=== PATIENT | female | born 1965 | race African-American/Black ===

== ENCOUNTER 2019-05-01 10:38 | Emergency (ER) | payer MEDICARE ==
[2019-05-01 10:41] VITALS: Wt 75.0 kg
[2019-05-01] MEDS ORDERED: LITHIUM CARBON300 MG PO (10:43)
[2019-05-01] MEDS ORDERED: PROZAC20 MG PO (10:43)
[2019-05-01] MEDS ORDERED: OMEPRAZOLE40 MG PO (10:43)
[2019-05-01] MEDS ORDERED: MOBIC7.5 MG PO (10:43)
[2019-05-01] MEDS ORDERED: NAPROSYN500 MG PO (10:44)
[2019-05-01] MEDS ORDERED: GEODON40 MG PO (10:44)
[2019-05-01] MEDS ORDERED: K-DUR20 MEQ PO (10:44)
[2019-05-01] MEDS ORDERED: SEROQUEL XR300 MG PO (10:45)
[2019-05-01] MEDS ORDERED: TRAZODONE HCL150 MG PO (10:45)
[2019-05-01 10:54] LABS: APPEARANCE CLEAR (CLEAR); BILIRUBIN NEGATIVE (NEGATIVE); COLOR STRAW (YELLOW); GLUCOSE NEGATIVE (NEGATIVE); KETONE NEGATIVE (NEGATIVE); NITRITE NEGATIVE (NEGATIVE); PROTEIN NEGATIVE (NEGATIVE); SPECIFIC GRAVITY 1.005 (1.005-1.020); UROBILINOGEN NORMAL (NORMAL)
[2019-05-01 10:56] LABS: HCG URINE NEGATIVE (NEGATIVE)
[2019-05-01 10:58] LABS: UDS - AMPHET NEGATIVE QUAL (NEGATIVE); UDS - BARB NEGATIVE QUAL (NEGATIVE); UDS - BENZO NEGATIVE QUAL (NEGATIVE); UDS - COCAINE NEGATIVE QUAL (NEGATIVE); UDS - OPIATE NEGATIVE QUAL (NEGATIVE); UDS - PCP NEGATIVE QUAL (NEGATIVE); UDS - THC POSITIVE QUAL (NEGATIVE)
[2019-05-01 11:23] LABS: BASOPHILS 0 % (0-2); EOSINOPHILS 0.8 % (0-7); HEMATOCRIT 36.2 % (36.0-48.0); HEMOGLOBIN 11.7 g/dL (12-16); IMMATURE GRANULOCYTES 0.1 % (0-5); LYMPHOCYTES 16.7 % (15-50); MCH 31.7 pg (26.0-34.0); MCHC 32.3 g/dL (31.0-37.0); MCV 98.1 fL (80.0-100.0); MEAN PLATELET VOLUME 9.2 fL (7.4-10.4); MONOCYTES 6.9 % (2-11); NEUTROPHILS 75.5 % (40-80); PLATELET COUNT 456 10x3/uL (130-400); RBC 3.69 10x6/uL (4.00-5.40); RDW 17.4 % (11.5-14.5); WBC 10.8 10x3/uL (4.8-10.8)
[2019-05-01 11:24] LABS: ANION GAP 9.2 mmol/L (8-16); CALCIUM 9.1 mg/dL (8.5-10.1); CARBON DIOXIDE 30.3 mmol/L (21.0-32.0); CREATININE - SERUM 1.2 mg/dL (0.6-1.3); POTASSIUM - SERUM 5.5 mmol/L (3.5-5.1)
[2019-05-01 11:25] LABS: LITHIUM 1.39 mmol/L (0.60-1.20); SALICYLATES 3.4 mg/dL (2.8-20.0)
[2019-05-01 11:35] LABS: ALBUMIN 3.3 g/dL (3.4-5.0); BILIRUBIN - TOTAL 0.63 mg/dL (0.2-1.3); MAGNESIUM - SERUM 1.9 mg/dL (1.8-2.4); PROTEIN - SERUM 6.7 g/dL (6.4-8.2)
--- NOTE | 2019-05-01 11:59 | NUR ---
According to the suicide assessment screen the patient scores low on the assessment and does not require a 1:1 observation.
[2019-05-01 16:34] VITALS: BP 120/72
== END 2019-05-01 16:42 | disposition other institution (70) ==
LOC: D.ER 10:38
PROVIDERS: Family Medicine
DX: Z51.81 Encounter for therapeutic drug level monitoring (principal)